=== PATIENT | female | born 1995 | race Two or more races ===

== ENCOUNTER 2016-07-23 22:34 | Emergency (ER) | payer MEDICAID ==
[~2016-07-23] VITALS: Ht 165.1 cm; Wt 50.0 kg
[2016-07-23 23:50] LABS: HCG UR OBC PASS
[2016-07-24 00:50] VITALS: BP 129/63
== END 2016-07-24 00:56 | disposition home or self-care (01) ==
LOC: ED 07-24 00:46
DX: N30.01 Acute cystitis with hematuria (principal)
CPT/HCPCS: 81001; 81025; 87077; 87086; 87186; 99284